=== PATIENT | male | born 1985 | race Caucasian/White ===

== ENCOUNTER 2016-10-18 19:41 | Emergency (ER) | payer OTHER ==
[~2016-10-18] VITALS: Ht 182.9 cm; Wt 128.0 kg
[~2016-10-18 19:41] MED LIST: ALLEGRA ALLERGY60 MG PO; AUGMENTIN875TAB PO; BACTRIM DS1 TAB PO; BENADRYL25 MG PO; CEPHALEXIN500 MG OR; FLOXIN OTIC0.3 % AD; KEFLEX500 MG OR; LORTAB5 PO; NO HOME MEDS; SMZ-TMP DS1 TAB PO
[2016-10-18 20:18] LABS: INFLUENZA A NONE DETECTED (NONE DETECT); INFLUENZA B NONE DETECTED (NONE DETECT)
[2016-10-18] MEDS ORDERED: ZPAK PO (21:00)
[2016-10-18] MEDS ORDERED: ROBITUSSIN AC10 ML PO (21:00)
[2016-10-18 21:18] VITALS: BP 149/74
== END 2016-10-18 21:18 | disposition home or self-care (01) | DRG 203 ==
LOC: ED 19:41
PROVIDERS: Emergency Medicine
DX: J40 Bronchitis, not specified as acute or chronic (principal)

== ENCOUNTER 2018-05-15 13:20 | Emergency (ER) | payer OTHER ==
[~2018-05-15] VITALS: Ht 182.9 cm; Wt 133.0 kg
[~2018-05-15 13:20] MED LIST changes: +ROBITUSSIN AC10 ML PO; +ZPAK PO
[2018-05-15] MEDS ORDERED: MOTRIN400 MG PO (14:01)
[2018-05-15 14:30] VITALS: BP 155/87
== END 2018-05-15 14:30 | disposition home or self-care (01) | DRG 951 ==
LOC: ED 13:20
DX: Z23 Encounter for immunization (principal); T15.92XD Foreign body on external eye, part unspecified, left eye, subsequent encounter; X58.XXXD Exposure to other specified factors, subsequent encounter